=== PATIENT | male | born 1965 | race Caucasian/White ===

== ENCOUNTER 2021-08-03 04:47 | Observation (INO) ==
[2021-08-03] MEDS ORDERED: 0.9 % Sodium Chloride 1,000 ML IVC SCH (07:15)
[2021-08-03 08:13] LABS: Basophils % 0.6 %; Eosinophils # 0.6 K/mcL (0.0-0.6); Eosinophils % 7.8 %; Hematocrit 46.2 % (37.5-50.1); Hemoglobin 15.3 g/dL (12.9-16.9); Immature Granulocytes % 0.3 % (0-4); Lymphocytes # 1.1 K/mcL (0.6-4.6); Lymphocytes % 15.5 %; Mean Corpuscular HGB Conc 33.1 g/dL (31.6-35.5); Mean Corpuscular Hemoglobin 28.8 pg (28.0-33.3); Mean Platelet Volume 8.9 fL (9.4-12.4); Monocytes # 0.4 K/mcL (0.0-1.3); Monocytes % 5.8 %; Neutrophils # 4.9 K/mcL (1.6-8.9); Platelet Count 230 K/mcL (140-400); Red Blood Count 5.31 M/mcL (4.19-5.50); Red Cell Distribution Width 12.5 % (11.5-14.5); White Blood Count 7.1 K/mcL (4.3-11.1)
[2021-08-03 08:27] LABS: INR 1.1; Prothrombin Time 12.7 Seconds (9.4-12.1)
[2021-08-03] MEDS ORDERED: D5% in Water 1,000 ML IVC PRN (08:29)
[2021-08-03] MEDS ORDERED: *HR* Dextrose 50 % in Water (Syg) 50 ML SYRINGE IVP PRN (08:29)
[2021-08-03] MEDS ORDERED: Dextrose Gel 15 GM/37.5 ML TUBE PO PRN ×2 (08:29)
[2021-08-03 08:30] LABS: Activated Partial Thrombo Time 36.1 Seconds (26.0-36.0)
[2021-08-03 08:32] LABS: BUN/Creatinine Ratio 20 (6-26); Blood Urea Nitrogen 25 mg/dL (6-20); Calcium 9.5 mg/dL (8.6-10.3); Carbon Dioxide 29 mEq/L (23-29); Chloride 104 mEq/L (98-107); Glucose 192 mg/dL (70-105); Osmolality,Calculated 292 (280-300); Potassium 3.2 mEq/L (3.5-5.1); Sodium 136 mEq/L (136-145); eGFR For African Americans > 60 (> 60); eGFR For Non-African Americans 59 (> 60)
[2021-08-03] MEDS ORDERED: Naloxone 0.4 MG/ML INJ IVP PRN (08:45)
[2021-08-03] MEDS ORDERED: Ondansetron 4 MG/2 ML VIAL IVP PRN (08:45)
[2021-08-03] MEDS ORDERED: Morphine Sulfate 2 MG/ML SYRINGE IVP PRN (08:47)
[2021-08-03] MEDS: 0.9 % Sodium Chloride 1,000 ML IVC SCH ×2 (08:54→23:34)
[2021-08-03] MEDS ORDERED: Ipratropium/Albuterol Neb 3 ML IH PRN (08:57)
[2021-08-03] MEDS: Insulin LISPRO 300 UNITS/3 ML VIAL SUBQ SCH ×2 (14:22→17:48)
[2021-08-03] MEDS ORDERED: *HR* LORazepam 2 MG/ML VIAL IVP ONE (19:57)
[2021-08-03] MEDS: Budesonide/Formoterol 80/4.5 1 PUFF INH IH SCH (20:05)
[2021-08-03] MEDS ORDERED: *HR* Metoprolol 5 MG/5 ML VIAL IVP ONE (23:10)
[2021-08-04] MEDS: Insulin LISPRO 300 UNITS/3 ML VIAL SUBQ SCH ×3 (00:13→12:43)
[2021-08-04 02:58] LABS: BUN/Creatinine Ratio 22 (6-26); Blood Urea Nitrogen 20 mg/dL (6-20); Calcium 9.2 mg/dL (8.6-10.3); Carbon Dioxide 23 mEq/L (23-29); Chloride 107 mEq/L (98-107); Glucose 125 mg/dL (70-105); Osmolality,Calculated 288 (280-300); Potassium 3.3 mEq/L (3.5-5.1); Sodium 137 mEq/L (136-145); eGFR For African Americans > 60 (> 60); eGFR For Non-African Americans > 60 (> 60)
[2021-08-04] MEDS ORDERED: Lidocaine -MPF 2% 5 ML VIAL ONE (07:13)
[2021-08-04] MEDS ORDERED: *HR* Succinylcholine 200 MG/10 ML VIAL IVP ONE (07:13)
[2021-08-04] MEDS ORDERED: *HR* Propofol 200 MG/20 ML VIAL IVP ONE (07:13)
[2021-08-04] MEDS ORDERED: Lidocaine HCL 4 ML Topical Solution (Laryng-O-Jet Kit Sterile Pak) TP ONE (07:13)
[2021-08-04] MEDS ORDERED: Ondansetron 4 MG/2 ML VIAL ONE (08:22)
[2021-08-04] MEDS ORDERED: *HR* Metoprolol 5 MG/5 ML VIAL IVP ONE (08:58)
[2021-08-04] MEDS: Budesonide/Formoterol 80/4.5 1 PUFF INH IH SCH (10:11)
[2021-08-04 12:32] VITALS: BP 155/96; PULSE 100; TEMP 98.2; O2SAT 96
== END 2021-08-04 13:20 | disposition home or self-care (01) ==
LOC: EMEROOARM 04:47 → 3BNU 04:47
PROVIDERS: ADMIT Family Medicine; ATTEND Family Medicine